=== PATIENT | female | born 1975 | race African-American/Black ===

== ENCOUNTER 2018-06-07 02:16 | Emergency (ER) | payer MEDICAID ==
[~2018-06-07] VITALS: Ht 177.8 cm; Wt 81.8 kg
[2018-06-07 03:19] LABS: BASOPHILS % (AUTO) 0.4 % (0.0-2.0); EOSINOPHILS % (AUTO) 1.8 % (1.0-6.0); HEMATOCRIT 36.9 % (36-46); HEMOGLOBIN 12.3 g/dL (12.0-16.0); LYMPHOCYTES # (AUTO) 1.7 K/uL (1.0-4.8); LYMPHOCYTES % (AUTO) 27.1 % (22.0-44.0); MEAN CORPUSCULAR HEMOGLOBIN 31.1 pg (26.0-34.0); MEAN CORPUSCULAR HGB CONC 33.4 G/dL (31.0-37.0); MEAN CORPUSCULAR VOLUME 93 fL (80-100); MONOCYTES # (AUTO) 0.5 K/uL (0.1-1.0); MONOCYTES % (AUTO) 8.4 % (2.0-9.0); NEUTROPHILS % (AUTO) 62.3 % (40.0-70.0); PLATELET COUNT (AUTO) 257 K/uL (150-450); RED BLOOD CELL COUNT(AUTO) 3.97 MIL/uL (4.00-5.20)
[2018-06-07 03:24] LABS: ANION GAP 6 mmol/L (8-16); CALCIUM, TOTAL 8.7 mg/dL (8.8-10.5); CARBON DIOXIDE 30 mmol/L (22-29); CHLORIDE 106 mmol/L (98-107); CREATININE 0.97 mg/dL (0.60-1.30); GLOMERULAR FILTR. RATE CALC > 60 mL/min (>60); GLUCOSE,RANDOM 97 mg/dL (70-110); POTASSIUM 3.8 mmol/L (3.5-5.1); SODIUM SERUM 142 mmol/L (136-145); UREA NITROGEN, BLOOD 11 mg/dL (7-18)
[2018-06-07 03:30] LABS: ALANINE AMINOTRANSFERASE 28 U/L (12-78); ALBUMIN 2.9 g/dL (3.4-5.0); ALKALINE PHOSPHATASE 51 U/L (46-116); ASPARTATE AMINOTRANSFERASE 16 U/L (15-37); BILIRUBIN,TOTAL 0.1 mg/dL (0.1-1.0); LIPASE 145 U/L (73-393); TOTAL PROTEIN, SERUM 6.4 g/dL (6.4-8.2)
[2018-06-07] MEDS ORDERED: IOVERSOL 350 MG/ML 100 ML VIAL ONE (03:37)
[2018-06-07] MEDS ORDERED: SODIUM CHLORIDE 0.9% 100 ML ONE (03:38)
[2018-06-07] MEDS ORDERED: MORPHINE SULFATE 4 MG/ML SYRINGE IVP ONE (05:30)
[2018-06-07 05:32] LABS: HCG,QUANTITATIVE < 1 mIU/mL (0-6)
[2018-06-07 05:42] LABS: APPEARANCE,URINE CLOUDY (CLEAR); BILIRUBIN,URINE NEGATIVE (NEGATIVE); GLUCOSE, URINE (UA) NEGATIVE (NEGATIVE); KETONES,URINE NEGATIVE (NEGATIVE); LEUKOCYTE ESTERASE ,URINE LARGE (NEGATIVE); NITRATE,URINE NEGATIVE (NEGATIVE); OCCULT BLOOD,URINE TRACE (NEGATIVE); PROTEIN,URINE TRACE (NEGATIVE); UROBILINOGEN,URINE 0.2 mg/dL (<=1.0)
[2018-06-07 06:04] LABS: BACTERIA,URINE Moderate /HPF (None Seen); SQUAMOUS EPITHELIAL CELL,UR Moderate /LPF (None Seen); WBC,URINE >100 /HPF (0-5)
[2018-06-07] MEDS ORDERED: PB/HYOSCY/ATR/SCOP/LIDO/MAALOX 55 ML BOTTLE PO ONE (06:45)
[2018-06-07 07:27] VITALS: BP 121/88
[2018-06-07] MEDS ORDERED: CYCLOBENZAPRINE HCL 10 MG TABLET PO ONE (07:30)
[2018-06-07] MEDS ORDERED: KETOROLAC TROMETHAMINE 30 MG/ML VIAL IVP ONE (07:30)
== END 2018-06-07 07:40 | disposition home or self-care (01) ==
LOC: EMS 02:17
DX: S29.011A Strain of muscle and tendon of front wall of thorax, initial encounter (principal); F17.210 Nicotine dependence, cigarettes, uncomplicated; F15.90 Other stimulant use, unspecified, uncomplicated; X58.XXXA Exposure to other specified factors, initial encounter; Y93.89 Activity, other specified; Y92.89 Other specified places as the place of occurrence of the external cause; Y99.8 Other external cause status
CPT/HCPCS: 36415; 71260; 80053; 81001; 83690; 84484; 84702; 85025; 85379; 87086; 87186; 93005; 96374; 96375; 99285; J1885; J2270; J7050; Q9967

== ENCOUNTER 2018-06-08 17:08 | Emergency (ER) | payer MEDICAID ==
[~2018-06-08] VITALS: Ht 172.7 cm; Wt 76.4 kg
[2018-06-08] MEDS ORDERED: KETOROLAC TROMETHAMINE 30 MG/ML VIAL IVP ONE (18:30)
[2018-06-08] MEDS ORDERED: FLUCONAZOLE 150 MG TABLET PO ONE (18:30)
[2018-06-08 18:54] LABS: BASOPHILS % (AUTO) 0.6 % (0.0-2.0); EOSINOPHILS % (AUTO) 1.7 % (1.0-6.0); HEMATOCRIT 38.4 % (36-46); HEMOGLOBIN 12.7 g/dL (12.0-16.0); LYMPHOCYTES # (AUTO) 1.5 K/uL (1.0-4.8); LYMPHOCYTES % (AUTO) 26.9 % (22.0-44.0); MEAN CORPUSCULAR HEMOGLOBIN 30.1 pg (26.0-34.0); MEAN CORPUSCULAR VOLUME 91 fL (80-100); MONOCYTES # (AUTO) 0.4 K/uL (0.1-1.0); MONOCYTES % (AUTO) 7.5 % (2.0-9.0); NEUTROPHILS # (AUTO) 3.5 K/uL (1.8-7.7); NEUTROPHILS % (AUTO) 63.3 % (40.0-70.0); PLATELET COUNT (AUTO) 280 K/uL (150-450); RED CELL DISTRIBUTION WIDTH 14.8 % (11.5-14.5)
[2018-06-08 18:55] LABS: APPEARANCE,URINE CLOUDY (CLEAR); BILIRUBIN,URINE NEGATIVE (NEGATIVE); GLUCOSE, URINE (UA) NEGATIVE (NEGATIVE); KETONES,URINE NEGATIVE (NEGATIVE); LEUKOCYTE ESTERASE ,URINE LARGE (NEGATIVE); NITRATE,URINE NEGATIVE (NEGATIVE); OCCULT BLOOD,URINE TRACE (NEGATIVE); PROTEIN,URINE POS 1+ (NEGATIVE)
[2018-06-08 19:05] LABS: RBC,URINE 0-2 /HPF (0-2); WBC,URINE >100 /HPF (0-5)
[2018-06-08 19:06] LABS: ANION GAP 6 mmol/L (8-16); CALCIUM, TOTAL 8.5 mg/dL (8.8-10.5); CARBON DIOXIDE 30 mmol/L (22-29); CHLORIDE 105 mmol/L (98-107); CREATININE 0.89 mg/dL (0.60-1.30); GLOMERULAR FILTR. RATE CALC > 60 mL/min (>60); GLUCOSE,RANDOM 79 mg/dL (70-110); POTASSIUM 3.7 mmol/L (3.5-5.1); SODIUM SERUM 141 mmol/L (136-145); UREA NITROGEN, BLOOD 7 mg/dL (7-18)
[2018-06-08 19:06] LABS: BACTERIA,URINE Many /HPF (None Seen); MUCUS,URINE Few LPF (None Seen); SQUAMOUS EPITHELIAL CELL,UR Many /LPF (None Seen)
[2018-06-08 19:16] LABS: B-TYPE NATRIURETIC PEPTIDE 35 pg/mL (0-100)
[2018-06-08 19:29] LABS: ALANINE AMINOTRANSFERASE 30 U/L (12-78); ALKALINE PHOSPHATASE 53 U/L (46-116); ASPARTATE AMINOTRANSFERASE 20 U/L (15-37); BILIRUBIN,TOTAL 0.3 mg/dL (0.1-1.0); CREATINE KINASE, TOTAL ONLY 260 U/L (26-192); TOTAL PROTEIN, SERUM 6.9 g/dL (6.4-8.2)
[2018-06-08] MEDS ORDERED: LIDOCAINE/PF 1% 2 ML VIAL IM ONE (19:45)
[2018-06-08] MEDS ORDERED: CefTRIAXone SODIUM 1 GM/VIAL IM ONE (19:45)
[2018-06-08 20:21] VITALS: BP 128/76
== END 2018-06-08 20:29 | disposition home or self-care (01) ==
LOC: EMS 17:08
DX: N39.0 Urinary tract infection, site not specified (principal); B37.3 Candidiasis of vulva and vagina; R07.89 Other chest pain; F17.210 Nicotine dependence, cigarettes, uncomplicated; F15.90 Other stimulant use, unspecified, uncomplicated
CPT/HCPCS: 36415; 80053; 81001; 82550; 83880; 84484; 85025; 87077; 87086; 87186; 93005; 96372; 96374; 99285; J0696; J1885; J3490

== ENCOUNTER 2020-08-20 04:29 | Emergency (ER) | payer MEDICAID ==
[~2020-08-20] VITALS: Ht 172.7 cm; Wt 90.9 kg
[2020-08-20 06:30] VITALS: BP 128/85
== END 2020-08-20 06:51 | disposition home or self-care (01) ==
LOC: EMS 04:31
DX: L84 Corns and callosities (principal); M79.671 Pain in right foot; F17.210 Nicotine dependence, cigarettes, uncomplicated; F19.90 Other psychoactive substance use, unspecified, uncomplicated
CPT/HCPCS: 99282; Z7502

== ENCOUNTER 2021-07-28 13:48 | Emergency (ER) | payer MEDICAID ==
[~2021-07-28] VITALS: Ht 177.8 cm; Wt 105.9 kg
[2021-07-28 16:22] VITALS: BP 140/73
== END 2021-07-28 16:30 | disposition home or self-care (01) ==
LOC: EMS 13:48
DX: H00.021 Hordeolum internum right upper eyelid (principal); F17.210 Nicotine dependence, cigarettes, uncomplicated
CPT/HCPCS: 99283; Z7502

== ENCOUNTER 2021-09-22 00:08 | Emergency (ER) | payer MEDICAID ==
[~2021-09-22] VITALS: Ht 170.2 cm; Wt 95.5 kg
[2021-09-22 02:40] VITALS: BP 139/85
== END 2021-09-22 03:26 | disposition home or self-care (01) ==
LOC: EMS 00:09
DX: M54.31 Sciatica, right side (principal); F15.90 Other stimulant use, unspecified, uncomplicated; F17.210 Nicotine dependence, cigarettes, uncomplicated
CPT/HCPCS: 99281; Z7502

== ENCOUNTER 2021-12-08 12:10 | Emergency (ER) | payer MEDICAID ==
[~2021-12-08] VITALS: Ht 172.7 cm; Wt 104.6 kg
[2021-12-08] MEDS ORDERED: OxyCODONE HCL/ACETAMINOPHEN 5-325 MG TABLET PO ONE (13:00)
[2021-12-08 14:39] VITALS: BP 124/83
== END 2021-12-08 15:18 | disposition home or self-care (01) ==
LOC: EMS 12:10
DX: S40.021A Contusion of right upper arm, initial encounter (principal); F15.90 Other stimulant use, unspecified, uncomplicated; F17.210 Nicotine dependence, cigarettes, uncomplicated; W23.0XXA Caught, crushed, jammed, or pinched between moving objects, initial encounter; Y93.89 Activity, other specified; Y92.89 Other specified places as the place of occurrence of the external cause; Y99.8 Other external cause status
CPT/HCPCS: 99284; 73080-TC; 73090-TC; 73110-TC; 73130-TC; Z7502; Z7610

== ENCOUNTER 2022-02-09 23:48 | Emergency (ER) | payer MEDICAID ==
[~2022-02-09] VITALS: Ht 172.7 cm; Wt 102.3 kg
[2022-02-10] MEDS ORDERED: CEPH-558 PO (02:58)
[2022-02-10] MEDS ORDERED: SULF-261 PO (02:59)
[2022-02-10 03:15] VITALS: BP 129/89
== END 2022-02-10 03:30 | disposition home or self-care (01) ==
LOC: EMS 23:49
DX: L03.811 Cellulitis of head [any part, except face] (principal); F17.210 Nicotine dependence, cigarettes, uncomplicated; Z90.49 Acquired absence of other specified parts of digestive tract; Z98.890 Other specified postprocedural states
CPT/HCPCS: 99283

== ENCOUNTER 2022-06-02 13:37 | Emergency (ER) | payer MEDICAID ==
[~2022-06-02] VITALS: Ht 170.2 cm; Wt 100.9 kg
[~2022-06-02 13:37] MED LIST: CEPH-558 PO; SULF-261 PO
[2022-06-02] MEDS ORDERED: IBUPROFEN 600 MG TABLET PO ONE (14:30)
[2022-06-02 15:35] VITALS: BP 143/82
[2022-06-02] MEDS ORDERED: IBUP-2070 PO (15:47)
== END 2022-06-02 16:02 | disposition home or self-care (01) ==
LOC: EMS 13:41
DX: M75.32 Calcific tendinitis of left shoulder (principal); F17.210 Nicotine dependence, cigarettes, uncomplicated; F15.90 Other stimulant use, unspecified, uncomplicated; Z90.49 Acquired absence of other specified parts of digestive tract; Z98.890 Other specified postprocedural states
CPT/HCPCS: 99284; 73000-TC; 73030-TC; 73060-TC; Z7502; Z7610

== ENCOUNTER 2022-11-16 01:56 | Emergency (ER) | payer MEDICAID ==
[~2022-11-16] VITALS: Ht 170.2 cm; Wt 95.5 kg
[~2022-11-16 01:56] MED LIST changes: -CEPH-558 PO; +IBUP-1492 PO; -SULF-261 PO
[2022-11-16] MEDS ORDERED: MORPHINE SULFATE 4 MG/ML SYRINGE IVP ONE (02:45)
[2022-11-16] MEDS ORDERED: HydrOXYzine PAMOATE 50 MG CAPSULE PO ONE (02:45)
[2022-11-16] MEDS ORDERED: LIDOCAINE 5% TRANSDERMAL PATCH TD ONE (02:45)
[2022-11-16] MEDS ORDERED: KETOROLAC TROMETHAMINE 30 MG/ML VIAL IVP ONE (02:45)
[2022-11-16 03:00] VITALS: BP 128/67
[2022-11-16 03:01] LABS: BASOPHILS % (AUTO) 0.8 % (0.0-2.0); EOSINOPHILS % (AUTO) 1.5 % (1.0-6.0); HEMATOCRIT 40.2 % (36-46); LYMPHOCYTES # (AUTO) 2.1 K/uL (1.0-4.8); LYMPHOCYTES % (AUTO) 28.3 % (22.0-44.0); MEAN CORPUSCULAR HEMOGLOBIN 29.6 pg (26.0-34.0); MEAN CORPUSCULAR HGB CONC 32.3 G/dL (31.0-37.0); MEAN CORPUSCULAR VOLUME 92 fL (80-100); MONOCYTES # (AUTO) 0.6 K/uL (0.1-1.0); MONOCYTES % (AUTO) 8.3 % (2.0-9.0); NEUTROPHILS # (AUTO) 4.4 K/uL (1.8-7.7); NEUTROPHILS % (AUTO) 61.1 % (40.0-70.0); PLATELET COUNT (AUTO) 283 K/uL (150-450); RED BLOOD CELL COUNT(AUTO) 4.38 MIL/uL (4.00-5.20); RED CELL DISTRIBUTION WIDTH 14.5 % (11.5-14.5)
[2022-11-16 03:10] LABS: ANION GAP 9 mmol/L (8-16); CARBON DIOXIDE 30 mmol/L (22-29); CHLORIDE 103 mmol/L (98-107); CREATININE 1.08 mg/dL (0.60-1.30); GLOMERULAR FILTR. RATE CALC > 60 mL/min (>60); GLUCOSE,RANDOM 93 mg/dL (70-110); POTASSIUM 3.8 mmol/L (3.5-5.1); SODIUM SERUM 142 mmol/L (136-145); UREA NITROGEN, BLOOD 17 mg/dL (7-18)
[2022-11-16 03:21] LABS: ALANINE AMINOTRANSFERASE 36 U/L (12-78); ALBUMIN 3.7 g/dL (3.4-5.0); ALKALINE PHOSPHATASE 52 U/L (46-116); ASPARTATE AMINOTRANSFERASE 14 U/L (15-37); BILIRUBIN,TOTAL 0.1 mg/dL (0.1-1.0); HCG,QUANTITATIVE 1 mIU/mL (0-6); LIPASE 68 U/L (73-393); TOTAL PROTEIN, SERUM 7.5 g/dL (6.4-8.2)
[2022-11-16] MEDS ORDERED: SODIUM CHLORIDE 0.9% 1,000 ML IV ONE (03:45)
[2022-11-16] MEDS ORDERED: IBUP-1492 PO (04:54)
[2022-11-16] MEDS ORDERED: LIDO700A15 TP (04:54)
[2022-11-16] MEDS ORDERED: CYCL-448 PO (04:54)
== END 2022-11-16 05:23 | disposition home or self-care (01) ==
LOC: EMS 01:56
DX: O09.10 Supervision of pregnancy with history of ectopic pregnancy, unspecified trimester (principal); M62.830 Muscle spasm of back; F17.210 Nicotine dependence, cigarettes, uncomplicated; F15.90 Other stimulant use, unspecified, uncomplicated; Z90.49 Acquired absence of other specified parts of digestive tract; Z98.890 Other specified postprocedural states
CPT/HCPCS: 99285; 96374; 71045; 96361; 96375; 80053; 83690; 84484; 84702; 85025; 85379; 36415; 93005; J1885; J2270

== ENCOUNTER 2023-01-09 22:31 | Emergency (ER) | payer MEDICAID ==
[~2023-01-09] VITALS: Ht 172.7 cm; Wt 100.0 kg
[~2023-01-09 22:31] MED LIST changes: +CYCL-448 PO; +LIDO700A15 TP
[2023-01-10] MEDS ORDERED: HYDROCODONE/ACETAMINOPHEN 5-325 MG TABLET PO ONE (03:00)
[2023-01-10] MEDS ORDERED: CLINDAMYCIN 600 MG/D5% WATER 50 ML IV ONE (03:00)
[2023-01-10] MEDS ORDERED: SODIUM CHLORIDE 0.9% 1,000 ML IV ONE (03:15)
[2023-01-10 03:20] LABS: BASOPHILS % (AUTO) 0.2 % (0.0-2.0); EOSINOPHILS % (AUTO) 2.2 % (1.0-6.0); HEMATOCRIT 34.6 % (36-46); HEMOGLOBIN 11.5 g/dL (12.0-16.0); LYMPHOCYTES # (AUTO) 1.3 K/uL (1.0-4.8); LYMPHOCYTES % (AUTO) 29.2 % (22.0-44.0); MEAN CORPUSCULAR HEMOGLOBIN 30.3 pg (26.0-34.0); MEAN CORPUSCULAR HGB CONC 33.2 G/dL (31.0-37.0); MEAN CORPUSCULAR VOLUME 91 fL (80-100); MONOCYTES # (AUTO) 0.3 K/uL (0.1-1.0); MONOCYTES % (AUTO) 6.3 % (2.0-9.0); NEUTROPHILS # (AUTO) 2.8 K/uL (1.8-7.7); NEUTROPHILS % (AUTO) 62.1 % (40.0-70.0); PLATELET COUNT (AUTO) 346 K/uL (150-450); RED BLOOD CELL COUNT(AUTO) 3.79 MIL/uL (4.00-5.20); RED CELL DISTRIBUTION WIDTH 14.3 % (11.5-14.5)
[2023-01-10 03:28] LABS: ANION GAP 6 mmol/L (8-16); CALCIUM, TOTAL 8.7 mg/dL (8.8-10.5); CARBON DIOXIDE 29 mmol/L (22-29); CHLORIDE 105 mmol/L (98-107); CREATININE 1.01 mg/dL (0.60-1.30); GLOMERULAR FILTR. RATE CALC > 60 mL/min (>60); GLUCOSE,RANDOM 108 mg/dL (70-110); POTASSIUM 3.9 mmol/L (3.5-5.1); SODIUM SERUM 140 mmol/L (136-145)
[2023-01-10 03:38] LABS: LACTIC ACID 0.4 mmol/L (0.4-2.0)
[2023-01-10 03:44] LABS: ALANINE AMINOTRANSFERASE 57 U/L (12-78); ALKALINE PHOSPHATASE 66 U/L (46-116); ASPARTATE AMINOTRANSFERASE 32 U/L (15-37); BILIRUBIN,TOTAL 0.2 mg/dL (0.1-1.0); TOTAL PROTEIN, SERUM 7.2 g/dL (6.4-8.2)
[2023-01-10] MEDS ORDERED: CLIN-142 PO (06:13)
[2023-01-10] MEDS ORDERED: TRAM-559 PO (06:15)
[2023-01-10 06:32] VITALS: BP 115/72; PULSE 76; RESP 18; TEMP 98.5
== END 2023-01-10 07:23 | disposition home or self-care (01) ==
LOC: EMS 22:33
DX: L03.116 Cellulitis of left lower limb (principal); L03.115 Cellulitis of right lower limb; F15.90 Other stimulant use, unspecified, uncomplicated; F17.210 Nicotine dependence, cigarettes, uncomplicated; R50.9 Fever, unspecified; Z98.890 Other specified postprocedural states; Z90.49 Acquired absence of other specified parts of digestive tract
CPT/HCPCS: 99285; 80053; 83605; 84703; 85025; 87040; 36415; 93970; 96365; J3490

== ENCOUNTER 2023-03-26 03:54 | Emergency (ER) | payer MEDICAID ==
[~2023-03-26] VITALS: Ht 172.7 cm; Wt 95.5 kg
[~2023-03-26 03:54] MED LIST changes: +CLIN-142 PO; +TRAM-559 PO
[2023-03-26] MEDS ORDERED: KETOROLAC TROMETHAMINE 30 MG/ML VIAL IVP ONE (06:45)
[2023-03-26 06:59] LABS: BASOPHILS % (AUTO) 0.8 % (0.0-2.0); EOSINOPHILS % (AUTO) 2.3 % (1.0-6.0); HEMATOCRIT 39.3 % (36-46); HEMOGLOBIN 12.7 g/dL (12.0-16.0); LYMPHOCYTES # (AUTO) 1.8 K/uL (1.0-4.8); LYMPHOCYTES % (AUTO) 28.9 % (22.0-44.0); MEAN CORPUSCULAR HEMOGLOBIN 29.6 pg (26.0-34.0); MEAN CORPUSCULAR HGB CONC 32.2 G/dL (31.0-37.0); MEAN CORPUSCULAR VOLUME 92 fL (80-100); MONOCYTES # (AUTO) 0.5 K/uL (0.1-1.0); MONOCYTES % (AUTO) 8.3 % (2.0-9.0); NEUTROPHILS # (AUTO) 3.6 K/uL (1.8-7.7); NEUTROPHILS % (AUTO) 59.7 % (40.0-70.0); PLATELET COUNT (AUTO) 247 K/uL (150-450); RED BLOOD CELL COUNT(AUTO) 4.28 MIL/uL (4.00-5.20); RED CELL DISTRIBUTION WIDTH 15.7 % (11.5-14.5); WHITE BLOOD COUNT (AUTO) 6.1 K/uL (4.5-11.0)
[2023-03-26 07:04] LABS: ANION GAP 10 mmol/L (8-16); CALCIUM, TOTAL 8.8 mg/dL (8.8-10.5); CARBON DIOXIDE 27 mmol/L (22-29); CHLORIDE 102 mmol/L (98-107); CREATININE 0.98 mg/dL (0.60-1.30); GLOMERULAR FILTR. RATE CALC > 60 mL/min (>60); GLUCOSE,RANDOM 99 mg/dL (70-110); SODIUM SERUM 139 mmol/L (136-145); UREA NITROGEN, BLOOD 21 mg/dL (7-18)
[2023-03-26 07:07] LABS: COVID AG,FIA SOURCE NASAL SWAB
[2023-03-26 07:19] LABS: HCG,QUANTITATIVE 1 mIU/mL (0-6)
[2023-03-26] MEDS ORDERED: IOHEXOL 350 MG/ML 100 ML VIAL ONE (07:26)
[2023-03-26] MEDS ORDERED: SODIUM CHLORIDE 0.9% 100 ML ONE (07:26)
[2023-03-26 07:37] LABS: SARS-COV2 (COVID) ANTIGEN,FIA Negative (Negative)
[2023-03-26 09:01] VITALS: BP 127/72; PULSE 75; RESP 14; TEMP 98.8
[2023-03-26] MEDS ORDERED: IBUP-1492 PO (09:02)
[2023-03-27] MEDS ORDERED: BACL10TA PO (21:35)
[2023-03-27] MEDS ORDERED: HYDR-4723 PO (21:35)
== END 2023-03-26 09:21 | disposition home or self-care (01) ==
LOC: EMS 03:55
DX: M62.838 Other muscle spasm (principal); F17.210 Nicotine dependence, cigarettes, uncomplicated; F12.90 Cannabis use, unspecified, uncomplicated; Z98.890 Other specified postprocedural states; Z20.822 Contact with and (suspected) exposure to COVID-19
CPT/HCPCS: 99285; 96374; 70491; 87426; 80048; 84702; 85025; 87430; 36415; J1885; Q9967; J7050

== ENCOUNTER 2023-03-27 19:38 | Emergency (ER) | payer MEDICAID ==
[~2023-03-27] VITALS: Ht 172.7 cm; Wt 95.5 kg
[2023-03-27 19:39] VITALS: TEMP 98.4
[2023-03-27] MEDS ORDERED: DIAZEPAM 5 MG TABLET PO ONE (20:15)
[2023-03-27] MEDS ORDERED: BACL10TA PO (21:35)
[2023-03-27] MEDS ORDERED: HYDR-4723 PO (21:35)
[2023-03-27 22:07] VITALS: BP 124/77; PULSE 85; RESP 19
== END 2023-03-27 22:10 | disposition home or self-care (01) ==
LOC: EMS 19:38
DX: M62.838 Other muscle spasm (principal); F17.210 Nicotine dependence, cigarettes, uncomplicated; F12.90 Cannabis use, unspecified, uncomplicated; Z98.890 Other specified postprocedural states
CPT/HCPCS: 99283

== ENCOUNTER 2024-02-20 02:46 | Emergency (ER) | payer MEDICAID ==
[~2024-02-20] VITALS: Ht 172.7 cm; Wt 95.5 kg
[~2024-02-20 02:46] MED LIST changes: +BACL10TA PO; -CLIN-142 PO; -CYCL-448 PO; +HYDR-4062 PO; -TRAM-559 PO; +TRAM50TA5 PO
[2024-02-20 02:52] VITALS: BP 151/80; PULSE 80; RESP 18; TEMP 98.8
[2024-02-20] MEDS: TraMADol HCL 50 MG TABLET PO ONE (03:59)
[2024-02-20] MEDS: LIDOCAINE 5% TRANSDERMAL PATCH TD ONE (04:00)
[2024-02-20] MEDS: KETOROLAC TROMETHAMINE 30 MG/ML VIAL IM ONE (04:00)
[2024-02-20] MEDS ORDERED: CYCL-448 PO (04:23)
== END 2024-02-20 04:41 | disposition home or self-care (01) ==
LOC: EMS 02:47
DX: M54.50 Low back pain, unspecified (principal); M19.90 Unspecified osteoarthritis, unspecified site; F17.210 Nicotine dependence, cigarettes, uncomplicated; F12.90 Cannabis use, unspecified, uncomplicated; Z98.890 Other specified postprocedural states
CPT/HCPCS: 99283; 96372; J1885

== ENCOUNTER 2024-11-26 12:32 | Emergency (ER) | payer MEDICAID ==
[~2024-11-26] VITALS: Ht 172.7 cm; Wt 95.5 kg
[~2024-11-26 12:32] MED LIST changes: +CYCL-448 PO; +LIDO-57 TP; -LIDO700A15 TP
[2024-11-26 12:37] VITALS: TEMP 98.2
[2024-11-26] MEDS: LIDOCAINE 1%/EPI 1:200,000/PF 10 ML VIAL SQ ONE (13:25)
[2024-11-26] MEDS: BACITRACIN 0.9 GM PACKET OINTMENT TP ONE (13:52)
[2024-11-26 14:32] VITALS: BP 129/85; PULSE 85; RESP 18; O2SAT 99
== END 2024-11-26 14:34 | disposition home or self-care (01) ==
LOC: EMS 12:36
DX: L91.8 Other hypertrophic disorders of the skin (principal); F12.90 Cannabis use, unspecified, uncomplicated; F17.210 Nicotine dependence, cigarettes, uncomplicated
CPT/HCPCS: 99284; 88302; 11200; J3490

== ENCOUNTER 2025-05-04 14:18 | Emergency (ER) | payer MEDICAID ==
[~2025-05-04] VITALS: Ht 167.6 cm; Wt 86.4 kg
[2025-05-04 14:25] VITALS: BP 138/88; PULSE 84; RESP 16; TEMP 98.8; O2SAT 100
== END 2025-05-04 16:06 | disposition left against medical advice (07) ==
LOC: EMS 14:18
DX: R51.9 Headache, unspecified (principal); Z53.21 Procedure and treatment not carried out due to patient leaving prior to being seen by health care provider
CPT/HCPCS: 99281; Z7502